=== PATIENT | male | born 1940 | race Caucasian/White ===

== ENCOUNTER 2018-02-10 13:07 | Emergency (ER) | payer OTHER ==
[~2018-02-10] VITALS: Ht 170.2 cm; Wt 81.3 kg
[~2018-02-10 13:07] MED LIST: ADVIL,NUPRIN,M200 MG PO; ASPIR 8181 M1 PO; Ascorbic Acid,Ester- PO; CLARITIN,ALAVAR10 MG PO; CRESTOR10 MG PO; FLONASE16 G1 BOTH NARES; GLUCOSAMINE H1500 MG PO; IPRATROPIUM BRO15 ML BOTH NARES; MUCINEX FAST-M1 EAC2 PO; Maalox, Mylanta PO; Metamucil Packet PO; OMEPRAZOLE20 MG PO; Prilosec PO; SYSTANE 0.3-0.1 EACH BOTH EYES; SYSTANE 0.300 DROP/1 BOTH EYES; SYSTANE LIQUID15 ML BOTH EYES; THERAGRAN1 TABLET PO; TIMOPTIC-0100 DROP/1 LEFT EYE; Vitamin-E PO; XALATAN 0.50 DROP/2. BOTH EYES
[2018-02-10 14:17] LABS: HEMATOCRIT 40.3 % (38.0-50.0); HEMOGLOBIN 14.1 G/DL (12.5-16.6); MCH 30.7 PG (29.0-34.0); MCV 87.8 FL (86-99); PLATELET COUNT 166 K/uL (156-360); RBC DIS.WIDTH-CV 12.7 % (11.8-14.6); RBC DIS.WIDTH-SD 40.9 % (39-53); RED BLOOD COUNT 4.59 M/uL (4.00-5.50); WHITE BLOOD COUNT 7.7 K/uL (4.1-10.2)
[2018-02-10 14:31] LABS: ALBUMIN 3.8 g/dL (3.2-4.8); CHLORIDE 107 mEq/L (99-109); POTASSIUM 4.1 mEq/L (3.7-5.4); SODIUM 140 mEq/L (136-147)
[2018-02-10 14:34] LABS: GLUCOSE 74 mg/dL (70-99); TOTAL PROTEIN 6.9 g/dL (6.4-8.3)
[2018-02-10 14:36] LABS: TOTAL BILIRUBIN 0.5 mg/dL (0.0-1.0)
[2018-02-10 14:37] LABS: ALKALINE PHOSPHATASE 62 IU/L (3-129); CREATININE 0.9 mg/dL (0.6-1.3); GFR ESTIMATE (CALCULATED) > 59 mL/min/ (58.99-99999)
[2018-02-10 14:38] LABS: UREA NITROGEN (BUN) 14 mg/dL (9-23)
[2018-02-10 14:39] LABS: AST (GOT) 21 IU/L (2-34)
[2018-02-10 14:40] LABS: ALT (GPT) 22 IU/L (3-49)
[2018-02-10 14:44] LABS: TROP-I INTERPRETATION NEGATIVE; TROPONIN-I 0.02 ng/mL (0.0-0.30)
[2018-02-10 17:34] VITALS: BP 161/89
== END 2018-02-10 17:35 | disposition home or self-care (01) ==
LOC: EME 13:07
PROVIDERS: Physician Assistant
DX: R42 Dizziness and giddiness (principal); R00.1 Bradycardia, unspecified; Z98.2 Presence of cerebrospinal fluid drainage device; Z86.718 Personal history of other venous thrombosis and embolism; Z79.82 Long term (current) use of aspirin
CPT/HCPCS: 70450; 80053; 84484; 85027; 93005; 99281; 99284